=== PATIENT | male | born 1995 | race Caucasian/White ===

== ENCOUNTER 2018-10-19 22:30 | Emergency (ER) | payer OTHER | END 2018-10-20 02:19 | disposition home or self-care (01) | LOC: JER 22:30 ==

== ENCOUNTER 2022-07-29 23:33 | Emergency (ER) | payer OTHER ==
[2022-07-29 23:50] VITALS: BP 121/63; PULSE 96; RESP 18; TEMP 99.5; BMI 36.0
[2022-07-30] MEDS ORDERED: ONDANSETRON *ODT* 4 MG TABLET SL ONE (00:29)
[2022-07-30] MEDS ORDERED: ONDANSETRON *ODT* 4 MG TABLET ONE (00:46)
== END 2022-07-30 02:47 | disposition home or self-care (01) ==
LOC: JER 23:33
DX: B34.9 Viral infection, unspecified (principal)
CPT/HCPCS: 0241U-QW; 71046-TC-FY; 87651; 99284-25; Q0162

== ENCOUNTER 2022-10-30 20:00 | Emergency (ER) | payer OTHER ==
[2022-10-30 20:22] VITALS: BP 133/84; PULSE 84; RESP 20; TEMP 98.3; BMI 37.5
[2022-10-30] MEDS ORDERED: DEXAMETHASONE SOD PHOSPHATE 10 MG/1 ML VIAL IM ONE (20:51)
[2022-10-30] MEDS ORDERED: DEXAMETHASONE SOD PHOSPHATE 10 MG/1 ML VIAL ONE (20:56)
== END 2022-10-30 21:11 | disposition home or self-care (01) ==
LOC: JERFT 20:00 → JER 20:00 → JERFT 21:11
PROC: 3E023GC Introduction of Other Therapeutic Substance into Muscle, Percutaneous Approach (ICD-10-PCS; principal; 2022-10-30)
DX: R07.0 Pain in throat (principal)
CPT/HCPCS: 99284-25; J1100

== ENCOUNTER 2023-06-03 22:27 | Emergency (ER) | payer OTHER ==
[2023-06-03 22:31] VITALS: BP 127/81; PULSE 65; RESP 18; TEMP 98.2; BMI 37.5
[2023-06-03] MEDS ORDERED: IBUPROFEN 400 MG TABLET (FP) PO ONE ×2 (22:51→22:58)
[2023-06-03] MEDS ORDERED: LIDOCAINE 5% TOPICAL PATCH TP ONE (22:51)
[2023-06-03] MEDS ORDERED: LIDOCAINE 4% PATCH TP ONE (22:58)
[2023-06-04] MEDS ORDERED: LIDOCAINE PATCH REMOVAL MC ONE (11:00)
== END 2023-06-03 23:22 | disposition home or self-care (01) ==
LOC: JER 22:27
DX: M25.511 Pain in right shoulder (principal); S46.011A Strain of muscle(s) and tendon(s) of the rotator cuff of right shoulder, initial encounter; X58.XXXA Exposure to other specified factors, initial encounter
CPT/HCPCS: 73030-TC-RT-FY; 99283-25